=== PATIENT | female | born 1990 | race Caucasian/White ===

== ENCOUNTER 2018-09-06 22:48 | Inpatient (IN) | payer MEDICAID ==
[2018-09-07] MEDS ORDERED: CARBOPROST 250 MCG INJ IM ×2 (01:00→11:00)
[2018-09-07] MEDS ORDERED: LIDOCAINE 1% (MPF) 30 ML INJ INJ (01:00)
[2018-09-07] MEDS ORDERED: OXYTOCIN 30 UNITS/LR 500 ML IV ×4 (01:00→11:00)
[2018-09-07] MEDS ORDERED: BUTORPHANOL 1 MG INJ IV (01:00)
[2018-09-07] MEDS ORDERED: BUTORPHANOL 2 MG INJ IV (01:00)
[2018-09-07] MEDS ORDERED: MISOPROSTOL 200 MCG TAB PR ×2 (01:00→11:00)
[2018-09-07] MEDS ORDERED: METHYLERGONOVINE 0.2 MG INJ IM ×2 (01:00→11:00)
[2018-09-07] MEDS: LACTATED RINGER'S 1,000 ML IV ×4 (01:35→05:37)
[2018-09-07 01:57] LABS: ADD MAN DIFF? NO
[2018-09-07 02:09] LABS: WHITE BLOOD COUNT 9.8 10^3/ul (4.8-10.8)
[2018-09-07 02:09] LABS: BASOPHILS % 0.4 % (0.0-2.0); EOSINOPHILS # 0.1 10^3/ul (0.0-0.5); HEMATOCRIT 35.4 % (37.0-47.0); HEMOGLOBIN 11.9 g/dl (12.0-16.0); LYMPHOCYTES # 2.5 10^3/ul (0.8-2.9); LYMPHOCYTES % 25.6 % (15.0-51.0); MEAN CORPUSCULAR HGB CONC 33.6 g/dl (32.0-37.0); MEAN CORPUSCULAR VOLUME 86.1 fl (82.0-101.0); MEAN PLATELET VOLUME 10.2 fl (7.4-10.4); MONOCYTE # 0.5 10^3/ul (0.3-0.9); MONOCYTES % 5.5 % (0.0-11.0); NEUTROPHIL # 6.6 10^3/ul (1.6-7.5); NEUTROPHILS % 67.1 % (39.0-77.0); PLATELET COUNT 282 10^3/UL (140-415); RED BLOOD COUNT 4.11 10^6/ul (4.20-5.40); RED CELL DISTRIBUTION WIDTH 12.7 % (11.5-14.5)
[2018-09-07 02:29] LABS: INR 0.87; PROTIME 11.9 Sec (11.9-14.9); PT RATIO 0.9
[2018-09-07 02:30] LABS: PARTIAL THROMBOPLASTIN TIME 27.4 Sec (23.0-35.0)
[2018-09-07] MEDS: OXYTOCIN 30 UNITS/LR 500 ML IV ×3 (04:16→10:57)
[2018-09-07] MEDS ORDERED: FENTAnyl 2MCG/ML-ROPIV 0.2% 100 ML (05:15)
[2018-09-07] MEDS ORDERED: ONDANSETRON 4 MG INJ IV ×2 (05:30→11:00)
[2018-09-07] MEDS ORDERED: DIPHENHYDRAMINE 50 MG INJ IV (05:30)
[2018-09-07] MEDS ORDERED: NALOXONE (0.4 MG/ML) INJ IV (05:30)
[2018-09-07] MEDS: FENTAnyl 2MCG/ML-ROPIV 0.2% 100 ML BAG EPI (05:38)
[2018-09-07] MEDS ORDERED: MINERAL OIL LIGHT 10 ML VIAL TOP (08:00)
[2018-09-07] MEDS ORDERED: LACTATED RINGER'S 1,000 ML IV* (10:55)
[2018-09-07] MEDS ORDERED: NA PHOSPHATE/BIPHOS 133 ML ENEMA PR (11:00)
[2018-09-07] MEDS ORDERED: MAGNESIUM HYDROXIDE 30ML CUP PO (11:00)
[2018-09-07] MEDS ORDERED: HYDROCODONE/APAP (5/325) TAB PO (11:00)
[2018-09-07] MEDS ORDERED: DIPHENHYDRAMINE 25 MG CAP PO (11:00)
[2018-09-07] MEDS ORDERED: METHYLERGONOVINE 0.2 MG TAB PO (11:00)
[2018-09-07] MEDS ORDERED: ZOLPIDEM 5 MG TAB PO (11:00)
[2018-09-07 15:01] LABS: RAPID PLASMA REAGIN NONREACTIVE (NR)
[2018-09-07] MEDS: IBUPROFEN 600 MG TAB PO (17:44)
[2018-09-07] MEDS: LANOLIN HPA 1 PKT TOP (17:44)
[2018-09-07] MEDS: WITCH HAZEL/GLYCERIN PAD PR (17:45)
[2018-09-07] MEDS: BENZOCAINE 20% 56 ML SPRAY TOP (17:45)
[2018-09-07] MEDS: SENNA/DOCUSATE NA (8.6MG/50MG) TAB PO (21:43)
[2018-09-08] MEDS: IBUPROFEN 600 MG TAB PO ×3 (00:28→17:17)
[2018-09-08 07:50] LABS: ADD MAN DIFF? NO
[2018-09-08 07:54] LABS: BASOPHIL # 0.1 10^3/ul (0.0-0.1); BASOPHILS % 0.5 % (0.0-2.0); EOSINOPHILS # 0.2 10^3/ul (0.0-0.5); EOSINOPHILS % 1.6 % (0.0-7.0); HEMATOCRIT 34.3 % (37.0-47.0); HEMOGLOBIN 11.3 g/dl (12.0-16.0); LYMPHOCYTES # 2.4 10^3/ul (0.8-2.9); LYMPHOCYTES % 21.9 % (15.0-51.0); MEAN CORPUSCULAR HGB CONC 32.9 g/dl (32.0-37.0); MEAN CORPUSCULAR VOLUME 88.2 fl (82.0-101.0); MEAN PLATELET VOLUME 10.5 fl (7.4-10.4); MONOCYTE # 0.6 10^3/ul (0.3-0.9); MONOCYTES % 5.6 % (0.0-11.0); NEUTROPHIL # 7.6 10^3/ul (1.6-7.5); NEUTROPHILS % 69.9 % (39.0-77.0); PLATELET COUNT 224 10^3/UL (140-415); RED BLOOD COUNT 3.89 10^6/ul (4.20-5.40); RED CELL DISTRIBUTION WIDTH 12.8 % (11.5-14.5)
[2018-09-08 07:54] LABS: WHITE BLOOD COUNT 10.8 10^3/ul (4.8-10.8)
[2018-09-08] MEDS: SENNA/DOCUSATE NA (8.6MG/50MG) TAB PO ×2 (08:38→21:54)
[2018-09-08 08:41] LABS: HEPATITIS B SURFACE ANTIGEN NEGATIVE (NEGATIVE)
[2018-09-08] MEDS: HYDROCODONE/APAP (5/325) TAB PO (15:47)
[2018-09-09] MEDS: IBUPROFEN 600 MG TAB PO ×3 (00:04→12:15)
[2018-09-09] MEDS: SENNA/DOCUSATE NA (8.6MG/50MG) TAB PO (09:00)
[2018-09-09] MEDS: VARICELLA VACCINE LIVE/PF 1,350 UNIT/0.5 ML ML SC* (09:00)
[2018-09-09] MEDS: DIPHTH/TET/ACEL PERTUSS (ADULT) 0.5 ML VIAL IM* (09:00)
[2018-09-09] MEDS: MEASLES,MUMPS,RUBELLA VACCINE INJ SC* (11:23)
== END 2018-09-09 13:41 | disposition home or self-care (01) | DRG 807 ==
LOC: OBT 22:48 → L-D 22:52 → PP1 09-07 12:11
PROVIDERS: Obstetrics & Gynecology
PROC: 10E0XZZ Delivery of Products of Conception, External Approach (ICD-10-PCS; principal; 2018-09-07)
PROC: 0HQ9XZZ Repair Perineum Skin, External Approach (ICD-10-PCS; 2018-09-07)
DX: O70.0 First degree perineal laceration during delivery (principal); Z37.0 Single live birth; Z3A.39 39 weeks gestation of pregnancy
CPT/HCPCS: 62322; 76815; 76818; 85025; 85610; 85730; 86592; 86850; 86900; 86901; 87340; 90716; 99464